=== PATIENT | male | born 1965 ===

== ENCOUNTER 2017-08-26 10:43 | Outpatient (CLI) | payer OTHER | END 2017-08-26 15:00 | disposition home or self-care (01) | LOC: RAD 10:43 | DX: M54.2 Cervicalgia (principal); M25.512 Pain in left shoulder ==

== ENCOUNTER → 2017-08-26 | Outpatient (CLI) | payer OTHER ==
[~2017-08-26] MED LIST: AVALIDE 150-12.1 TA1 PO; LIPITOR40 MG PO; NORVASC2.5 M1
== END | disposition home or self-care (01) ==
LOC: PPHC 08:52
DX: M25.512 Pain in left shoulder (principal)